=== PATIENT | female | born 1995 | race Caucasian/White ===

== ENCOUNTER 2017-01-15 18:37 | Emergency (ER) | payer OTHER ==
[2017-01-15 19:21] VITALS: BP 119/78
--- NOTE | 2017-01-15 19:49 | UC ---
Throat Pain/Nasal [place] HPI - HPI Summary HPI Summary: pt presents with c/o productive cough, nasal congestion sinus pressure "behind right eye", right ear ache. Pt is concerned that productive cough is green mucus and "bad tasting". Pt has history of seasonal allergies but is not taking her allergy medicine. Denies getting flu vaccine this season. - History of Current Complaint Chief Complaint: UCRespiratory Stated Complaint: CONGEST,COUGH,EAR PRESSURE Time Seen by Provider: 01/15/17 19:38 Hx Obtained From: Patient Hx Last Menstrual Period: 12/29/16 ?: No Onset/Duration: Gradual Onset, Lasting Days Severity: Mild Cough: Sputum Appears - green Associated Signs & Symptoms: Positive: Other - right ear ache. right maxillary sinus pressure Related History: Seasonal Allergies - Epiglottits Risk Factors Epiglottis Risk Factors: Negative - Allergies/Home Medications Allergies/Adverse Reactions: Allergies Allergy/AdvReac Type Severity Reaction Status Date / Time Methylphenidate Allergy Severe Hives Verified 07/20/16 19:03 Sulfa Antibiotics Allergy Unknown Verified 07/20/16 19:03 Reaction Details Home Medications: Home Medications [id number] [Mucinex Fast-Max Cold & S 10-650-400 mg/20Ml] 1 liq PO 01/15/17 [History] PMH/Surg Hx/FS Hx/Imm Hx Previously Healthy: Yes Endocrine History Of: Denies: Diabetes, Thyroid Disease Cardiovascular History Of: Denies: Cardiac Disorders, Hypertension Respiratory History Of: Denies: COPD, Asthma GI/ History Of: Denies: Ulcer - Surgical History Surgical History: None - Family History Known Family History: Positive: Other - positive for FMH URI Negative: Diabetes - Social History Lives: With Family Alcohol Use: Occasionally Substance Use Type: Marijuana Smoking Status (MU): Heavy Every Day Tobacco Smoker Type: Cigarettes Amount Used/How Often: 3/4 PPD Length of Time of Smoking/Using Tobacco: 6+ YEARS Have You Smoked in the Last Year: Yes - Immunization History Hx Tetanus, Diphtheria Vaccination: No Vaccination Up to Date: No Review of Systems Constitutional: Negative Skin: Negative Eyes: Negative ENT: Sore Throat, Ear Ache - right, Other - right maxillary sinus tenderness Respiratory: Cough - productive Cardiovascular: Negative Gastrointestinal: Negative Genitourinary: Negative Motor: Negative Neurovascular: Negative Musculoskeletal: Negative Neurological: Negative Psychological: Negative All Other Systems Reviewed And Are Negative: Yes Physical Exam Triage Information Reviewed: Yes Appearance: Well-Appearing Vital Signs: Initial Vital Signs Temp 98.8 F 01/15/17 19:12 Pulse 77 01/15/17 19:12 Resp 18 01/15/17 19:12 BP 119/78 01/15/17 19:12 Pulse Ox 100 01/15/17 19:12 Vital Signs Reviewed: Yes Eye Exam: Normal ENT Exam: Other ENT: Positive: Nasal congestion, TM bulging - right TM, Other: - right maxillary sinus tenderness, PND Neck exam: Normal Respiratory Exam: Normal Cardiovascular Exam: Normal Musculoskeletal Exam: Normal Neurological Exam: Normal Psychological Exam: Normal Skin Exam: Normal Throat Pain/Nasal Course/Dx - Differential Dx/Diagnosis Differential Diagnosis/HQI/PQRI: Influenza, Otitis Media, URI Provider Diagnoses: Allergic Rhinitis. URI. Acute Cough Discharge - Discharge Plan Condition: Stable Disposition: HOME Prescriptions: Benzonatate CAP* [Tessalon 100 MG CAP*] 100 mg PO TID PRN #15 cap PRN Reason: Cough Loratadine & Pseudoephedrine [Claritin-D 24 Hour 10-240 mg] 1 tab PO DAILY #7 tab Patient Education Materials: Allergic Rhinitis (ED), Cold Symptoms (ED), Acute Cough (ED) Referrals: Ambar Baldwin MD [Primary Care Provider] - If Needed
== END 2017-01-15 20:13 | disposition home or self-care (01) ==
LOC: UCEAST 18:37
DX: J30.9 Allergic rhinitis, unspecified (principal); J06.9 Acute upper respiratory infection, unspecified; R05 Cough; Z88.2 Allergy status to sulfonamides; Z88.8 Allergy status to other drugs, medicaments and biological substances; F12.90 Cannabis use, unspecified, uncomplicated; F17.210 Nicotine dependence, cigarettes, uncomplicated
CPT/HCPCS: 99212; G0463

== ENCOUNTER → 2017-07-21 13:47 | Emergency (ER) | payer SELFPAY ==
[2017-07-21 14:01] VITALS: BP 129/76
--- NOTE | 2017-07-21 14:45 | ED ---
Influenza-Like Illness - HPI Summary HPI Summary: 21 female presents to ED with complaints of sore throat, productive cough, nasal and sinus congestion and headache. Patient states she has also been losing her voice. Symptoms have been going on for the past 3-4 days. States she thinks her roommate got her sick. Denies fever, nausea, vomiting. Has taken 1 mucinex without relief. No other complaints at this time. No other PMHx. Has merle using inhaler prescribed to her last time she was sick which helps. Has a nebulizer but has not used it, does have correct medication refills. States yesterday was the worst of her symptoms. - History of Current Complaint Chief Complaint: EDUpperRespComplaint Time Seen by Provider: 07/21/17 14:12 Hx Obtained From: Patient Onset/Duration: Sudden Onset, Lasting Days, Still Present Severity: Mild Associated Signs & Symptoms: Cough, Sore Throat, Nasal Congestion, Headache - Allergy/Home Medications Allergies/Adverse Reactions: Allergies Allergy/AdvReac Type Severity Reaction Status Date / Time Methylphenidate Allergy Severe Hives Verified 07/20/16 19:03 Sulfa Antibiotics Allergy Unknown Verified 07/20/16 19:03 Reaction Details PMH/Surg Hx/FS Hx/Imm Hx Endocrine/Hematology History: Denies: Hx Diabetes, Hx Thyroid Disease Cardiovascular History: Denies: Hx Hypertension Respiratory History: Denies: Hx Asthma, Hx Chronic Obstructive Pulmonary Disease (COPD) GI History: Denies: Hx Ulcer - Cancer History Cancer Type, Location and Year: none - Surgical History Surgery Procedure, Year, and Place: n/a - Immunization History Immunizations Up to Date: Yes Infectious Disease History: No Infectious Disease History: Denies: Hx Hepatitis, Hx Human Immunodeficiency Virus (HIV), History Other Infectious Disease, Traveled Outside the [place] in Last 30 Days - Family History Known Family History: Positive: None, Other - positive for FMH URI Negative: Diabetes - Social History Alcohol Use: None Hx Substance Use: No Substance Use Type: Reports: None Hx Tobacco Use: Yes Smoking Status (MU): Light Every Day Tobacco Smoker Type: Cigarettes Amount Used/How Often: 3/4 PPD Length of Time of Smoking/Using Tobacco: 6+ YEARS Have You Smoked in the Last Year: Yes Review of Systems Constitutional: Negative Eyes: Negative Positive: Sore Throat, Nasal Discharge Cardiovascular: Negative Positive: Cough Gastrointestinal: Negative Musculoskeletal: Negative Positive: Headache All Other Systems Reviewed And Are Negative: Yes Physical Exam Triage Information Reviewed: Yes Vital Signs On Initial Exam: Initial Vitals Temp Pulse Resp BP Pulse Ox 98.3 F 86 16 129/76 99 07/21/17 13:56 07/21/17 13:56 07/21/17 13:56 07/21/17 13:56 07/21/17 13:56 not hypoxic, afebrile Vital Signs Reviewed: Yes Appearance: Positive: Well-Appearing - sounds congested, dysphonia, No Pain Distress, Well-Nourished Skin: Positive: Warm, Skin Color Reflects Adequate Perfusion, Dry. Negative: Cold, Numb, Cyanosis @, Pale, Erythema @ Head/Face: Positive: Normal Head/Face Inspection Eyes: Positive: EOMI, BAKARI, Conjunctiva Clear ENT: Positive: Hearing grossly normal, Pharynx normal, Nasal congestion, TMs normal. Negative: Pharyngeal erythema, Nasal drainage, TM bulging, TM dull, TM red, Tonsillar swelling, Tonsillar exudate, Trismus, Muffled/hoarse voice Dental: Negative: Cervical Lymphadenopathy Neck: Positive: Supple, Nontender, No Lymphadenopathy Respiratory/Lung Sounds: Positive: Clear to Auscultation, Breath Sounds Present. Negative: Decreased Breath Sounds, Rales, Rhonchi, Wheezes Cardiovascular: Positive: Normal, RRR, Pulses are Symmetrical in both Upper and Lower Extremities. Negative: Murmur, Rub Abdomen Description: Positive: Nontender, Soft Bowel Sounds: Positive: Present Musculoskeletal: Positive: Normal, Strength/ROM Intact Neurological: Positive: Normal, Sensory/Motor Intact, Alert, Oriented to Person Place, Time, Normal Gait Psychiatric: Positive: Affect/Mood Appropriate - Roseanne Coma Scale Coma Scale Total: 15 Diagnostics - Vital Signs Vital Signs Temp Pulse Resp BP Pulse Ox 07/21/17 13:56 98.3 F 86 16 129/76 99 - Laboratory Lab Statement: Any lab studies that have been ordered have been reviewed, and results considered in the medical decision making process. Flu Symptom Course/Dx - Course Course Of Treatment: due to complaint of symptoms and PE findings patient appears to be suffering URI/bronchitis. Normal vitals. No concern for flu, strep or mono. Appears to be a viral illness. Will continue inhaler and mucinex. told to use nebulizer which she already has medication for, claritin, flonase and saline rinses. fluids and rest. aware of worsening signs and symptoms to be aware of. Give 2 weeks for improvement. Fever, worsening or no improvement may need further treatment. Patient agrees and understands plan. All questions were answered. - Diagnoses Differential Diagnosis/HQI/PQRI: Positive: Bronchitis, Influenza, Upper Respiratory Infection, Other - strep, mono, sinusitis Provider Diagnoses: Upper respiratory infection Discharge - Discharge Plan Condition: Stable Disposition: HOME Prescriptions: Fluticasone NASAL * [Flonase *] 2 spray BOTH NARES DAILY #1 spray Patient Education Materials: Upper Respiratory Infection (ED) Referrals: Ambar Baldwin MD [Primary Care Provider] - Additional Instructions: Continue use of inhaler and nebulizer as directed. Use flonase nasal spray to help with congestion. Recommend taking mucinex and claritin to dry up and break up mucus. Also recommend using saline nasal spray. Drink plenty of fluids and get plenty of rest. Wash hands frequently and cover mouth when coughing. Warm compresses over sinuses and ibuprofen/tylenol for headache. Hot showers. Refrain from smoking to help symptoms improve sooner. If symptoms worsen or do not improve please seek medical attention as you may need further treatment. These symptoms may last up to 3 weeks.
== END | disposition home or self-care (01) ==
LOC: ED 13:47
DX: J06.9 Acute upper respiratory infection, unspecified (principal); F17.210 Nicotine dependence, cigarettes, uncomplicated
CPT/HCPCS: 99281

== ENCOUNTER 2018-04-11 11:16 | Emergency (ER) | payer SELFPAY ==
[2018-04-11 11:23] VITALS: BP 120/82
--- NOTE | 2018-04-11 12:02 | UC ---
[facility] HPI - HPI Summary HPI Summary: SEVERAL DAYS OF PAIN AND SWELLING LEFT UPPER LATERAL INCISOR. HAS NOT SEEN A DENTIST DUE TO LACK OF INSURANCE. SHE DENIES FEVER, NAUSEA. HAS DIFFUSELY POOR DENTITION. - History of Current Complaint Chief Complaint: UCDentalProblem Stated Complaint: TOOTH ACHE Time Seen by Provider: 04/11/18 11:35 Hx Obtained From: Patient Hx Last Menstrual Period: 03/26/18 Onset/Duration: Gradual Onset, Lasting Days, Still Present Severity: Moderate Pain Intensity: 7 Pain Scale Used: 0-10 Numeric Aggravating Factor(s): Heat, Cold, Chewing Alleviating Factor(s): OTC Meds Related History: Swelling - Allergies/Home Medications Allergies/Adverse Reactions: Allergies Allergy/AdvReac Type Severity Reaction Status Date / Time adhesive Allergy Rash Verified 04/11/18 11:26 methylphenidate Allergy Rash Verified 04/11/18 11:25 Sulfa (Sulfonamide Allergy Rash Verified 04/11/18 11:25 Antibiotics) PMH/Surg Hx/FS Hx/Imm Hx Previously Healthy: Yes - Surgical History Surgical History: None Surgery Procedure, Year, and Place: n/a - Family History Known Family History: Positive: Hypertension, Other - positive for FMH URI Negative: Diabetes - Social History Alcohol Use: None Substance Use Type: None Smoking Status (MU): Light Every Day Tobacco Smoker Type: Cigarettes Amount Used/How Often: 3/4 PPD Length of Time of Smoking/Using Tobacco: 6+ YEARS Have You Smoked in the Last Year: Yes - Immunization History Hx Tetanus, Diphtheria Vaccination: No Vaccination Up to Date: No Review of Systems Constitutional: Negative ENT: Dental Pain Respiratory: Negative Cardiovascular: Negative Gastrointestinal: Negative All Other Systems Reviewed And Are Negative: Yes Physical Exam Triage Information Reviewed: Yes Appearance: Well-Appearing, No Pain Distress, Well-Nourished Vital Signs: Initial Vital Signs Temp 97 F 04/11/18 11:20 Pulse 80 04/11/18 11:20 Resp 16 04/11/18 11:20 BP 120/82 04/11/18 11:20 Pulse Ox 99 04/11/18 11:20 Vital Signs Reviewed: Yes Eyes: Positive: Conjunctiva Clear ENT: Positive: Hearing grossly normal Dental: Positive: Percussion Tenderness @ - LEFT UPPER LATERAL INCISOR, Gross Decay/Caries @ - DIFFUSELY, Abscess @ - LEFT UPPER LATERAL INCISOR, Cervical Lymphadenopathy Neck: Positive: Supple, Nontender, Enlarged Nodes @ - MILD SPFL CERVICAL LAD Respiratory: Positive: No respiratory distress, No accessory muscle use Cardiovascular: Positive: Pulses Normal Abdomen Description: Positive: Soft Musculoskeletal: Positive: No Edema Neurological: Positive: Alert Psychological: Positive: Age Appropriate Behavior Skin: Negative: rashes Dental Complaint Course/Dx - Differential Dx/Diagnosis Provider Diagnoses: DENTAL ABSCESS LEFT UPPER LATERAL INCISOR Discharge - Sign-Out/Discharge Documenting (check all that apply): Discharge/Admit/Transfer - Discharge Plan Condition: Stable Disposition: HOME Prescriptions: Amoxicillin/Clavulanate TAB* [Augmentin TAB 875*] 875 mg PO BID #20 tab Chlorhexidine MW 0.12% 473ML* [Peridex Mouth Wash 0.12%*] 15 ml SWISH SPIT BID # 1 bottle Ibuprofen TAB* [Motrin TAB* 800 MG] 800 mg PO Q8H PRN #30 tab PRN Reason: Pain Patient Education Materials: Dental Abscess (ED) Referrals: Ambar Baldwin MD [Primary Care Provider] - If Needed Additional Instructions: TAKE THE ANTIBIOTICS FOR THE FULL COURSE. RINSE MOUTH WITH WATER AFTER EVERY TIME YOU EAT. FOLLOW-UP WITH A DENTIST GURVINDER. LIST OF LOCAL LOW COST/NO COST DENTAL OFFICES PROVIDED. - Billing Disposition and Condition Condition: STABLE Disposition: Home
== END 2018-04-11 12:04 | disposition home or self-care (01) ==
LOC: UCEAST 11:16
DX: K04.7 Periapical abscess without sinus (principal); Z88.2 Allergy status to sulfonamides; Z88.8 Allergy status to other drugs, medicaments and biological substances; Z91.048 Other nonmedicinal substance allergy status; F17.210 Nicotine dependence, cigarettes, uncomplicated; Z82.49 Family history of ischemic heart disease and other diseases of the circulatory system
CPT/HCPCS: 99212; G0463